=== PATIENT | male | born 1980 | race Caucasian/White ===

== ENCOUNTER → 2017-01-10 | Outpatient (CLI) | payer BC ==
--- NOTE | 2017-01-13 15:14 | PCVCIMAG ---
APPROVED REPORT Exam: Stress Echocardiogram Indication: Chest pain , Hyperlipidemia, Fam Hx CAD Patient Location: Echo lab Stress Nurse: Haleigh Livingston RN Status: routine Ht: 6 ft 2 in HR: 99 bpm BP: 118/70 mmHg Rhythm: NSR Procedure The patient underwent an Exercise Stress Test using the Donnie Protocol. Blood pressure, heart rate, and EKG were monitored. An Echocardiogram was performed by geophysical data technician in four stages in quad fashion. At peak stress, four selected images were obtained and placed side by side with resting images for comparison. Stress Test Details Stress Test: Exercise stress testing was performed using a Donnie protocol. HR Resting HR: 99 bpmMax Heart Rate (APMHR): 185 bpm Max HR Achieved: 179 bpmTarget HR (85% APMHR): 157 bpm % of APMHR: 96 Recovery HR: 123 bpm HR response to stress: Normal HR response to stress BP Resting BP: 118/70 mmHg Max BP: 166/80 mmHg Recovery BP: 128/70 mmHg ECG Resting ECG: Sinus Rhythm Stress ECG: Sinus Rhythm ST Change: Normal Arrhythmia: None Recovery ECG: Sinus Rhythm Recovery ST Change: Normal Recovery Arrhythmia: None Clinical Reason for Termination: Maximal effort Stress Symptoms: Dyspnea Exercise duration: 12 min 34 sec Highest Stage Achieved: Stage 5: 5.0 mph at 18% grade. Exercise capacity: 15.4 METs Overall Exercise Capacity for Age: Good Stress ECG Conclusion 1. SUBJECTIVELY NEGATIVE FOR ISHEMIA 2. ELECTROCARDIOGRAPHICALLY NEGATIVE FOR ISCHEMIA 3. ADEQUATE FUNCTIONAL CAPACITY Pre-Stress Echo The resting Echocardiogram showed normal left ventricular contractility with an estimated Ejection Fraction of about >55%. Normal wall motion in all segments on baseline images. Post-Stress Echo The stress Echocardiogram showed normal left ventricular contractility with an estimated Ejection Fraction of about 65%. Normal augmentation of wall motion in all segments on post stress images. Clinical No clinical or ECG evidence for ischemia. Conclusion Clinical Response: Non-ischemic Stress ECG Response: Non-ischemic Stress Echo Images: Non-ischemic The left ventricle is normal in size and wall thickness in both the rest and stress images. 1. LOW RISK STUDY Other Information Study Quality: Adequate <Conclusion> The left ventricle is normal in size and wall thickness in both the rest and stress images. 1. LOW RISK STUDY
== END | disposition home or self-care (01) ==
LOC: PCVCIMAG 13:33
PROVIDERS: ATTEND Internal Medicine
DX: R07.9 Chest pain, unspecified (principal); E78.5 Hyperlipidemia, unspecified; Z82.49 Family history of ischemic heart disease and other diseases of the circulatory system
CPT/HCPCS: 93325; 93351